=== PATIENT | female | born 1945 | race Hispanic/Latino ===

== ENCOUNTER → 2020-01-06 | Outpatient (CLI) | payer OTHER, MEDICARE ==
--- NOTE | 2019-09-27 11:15 | NUR ---
PT WAS A NO SHOW FOR THIS DATE OF SERVICE
[~2020-01-06] VITALS: Ht 144.8 cm; Wt 48.5 kg
[~2020-01-06] MED LIST: REGADENOSON 0.4 MG/5 ML PF SYG IVP SCH
== END | disposition home or self-care (01) ==
LOC: EDUNIT# 09-27 08:00 → SHCH 09:08
PROVIDERS: ATTEND Internal Medicine Cardiovascular Disease
DX: I51.7 Cardiomegaly (principal); R07.9 Chest pain, unspecified; R94.31 Abnormal electrocardiogram [ECG] [EKG]
CPT/HCPCS: 78452; 93017; 96374; A9500 ×2; J2785

== ENCOUNTER → 2022-06-18 | Outpatient (CLI) | payer OTHER, MEDICARE | END | disposition home or self-care (01) | LOC: SHCH 11:07 | PROVIDERS: ATTEND Internal Medicine Cardiovascular Disease | DX: I70.293 Other atherosclerosis of native arteries of extremities, bilateral legs (principal) | CPT/HCPCS: 93925 ==